=== PATIENT | male | born 1935 | race Caucasian/White ===

== ENCOUNTER 2021-09-21 12:19 | Inpatient (IN) | payer OTHER ==
[~2021-09-21] VITALS: Ht 172.7 cm; Wt 74.8 kg
[~2021-09-21 12:19] MED LIST: AMLO10 PO; ASPI325; ASPI325EC PO; ASPI81CH PO; ATOR40TA PO; CLOP75 PO; HYDACE5 PO; LISHYD2012 PO; LISI5 PO; META800 PO; METO50ER PO; NAPR500 PO; ROSU10TA PO; RXCLIN PO; TAMS.4ER PO; TRIHYD253B PO; UBID100 PO; UNK BP MED; UNK CHOLESTEROL MED
[2021-09-21 13:12] LABS: BASOPHILS ABSOLUTE AUTO 0.04 K/mm3 (0.00-0.23); BASOPHILS PERCENT AUTO 0 % (0-2); EOSINOPHILS ABSOLUTE AUTO 0.05 K/mm3 (0.00-0.68); EOSINOPHILS PERCENT AUTO 0 % (0-6); Hematocrit 36.9 % (37.0-53.0); Hemoglobin 12.3 g/dL (13.5-17.5); IMMATURE GRAN ABSOLUTE AUTO 0.05 K/mm3 (0.00-0.10); IMMATURE GRAN PERCENT AUTO 0 % (0-1); LYMPHOCYTES ABSOLUTE AUTO 0.62 K/mm3 (0.84-5.20); LYMPHOCYTES PERCENT AUTO 5 % (21-46); MONOCYTES ABSOLUTE AUTO 0.43 K/mm3 (0.16-1.47); MONOCYTES PERCENT AUTO 4 % (4-13); Mean Corpuscular HGB 30.8 pg (26.0-34.0); Mean Corpuscular HGB Conc 33.3 g/dL (31.5-36.5); Mean Corpuscular Volume 93 fL (80-100); Mean Platelet Volume 11.2 fL (9.1-12.4); NEUTROPHILS ABSOLUTE AUTO 10.23 K/mm3 (1.96-9.15); NEUTROPHILS PERCENT AUTO 90 % (41-73); Platelet Count 144 K/mm3 (150-400); RDW Coefficient Variation 14.6 % (11.7-14.2); RDW Standard Deviation 50.2 fL (35.1-46.3); Red Blood Cell Count 3.99 M/mm3 (4.30-5.90); White Blood Cell Count 11.42 K/mm3 (4.00-11.30)
[2021-09-21 13:25] LABS: International Normalized Ratio 1.13; Prothrombin Time Results 11.8 Sec (9.7-11.5)
[2021-09-21 13:27] LABS: Albumin, Blood 3.2 g/dL (3.4-5.0); Albumin/Globulin Ratio 0.8 (0.8-1.8); Bilirubin, Total 1.2 mg/dL (0.1-1.0); Bun/Creatinine Ratio 17.4 (12.0-20.0); Calcium, Blood 9.3 mg/dL (8.5-10.1); Creatinine, Blood 1.67 mg/dL (0.60-1.20); Potassium, Blood 4.3 mmol/L (3.5-5.5); Total Protein, Blood 7.2 g/dL (6.4-8.2)
--- NOTE | 2021-09-21 18:53 | NUR ---
PATIENT ARRIVED TO THE FLOOR FROM ED. TRANSFERED TO BED FROM [facility] WITH SLIDE SHEET. TOLERATED WELL. O2 @ 2L PER NC AT THIS TIME, THIS IS NOT HIS BASELINE, HE IS NORMALLY ON ROOM AIR. IV TO LEFT HAND 20G, NO SIGNS OR SYMPTOMS ACUTE DISTRESS NOTED. CALL LIGHT PLACED IN REACH, WATER IN REACH, GAVE SANDWICH AT THIS TIME. WILL MONITOR.
--- NOTE | 2021-09-21 19:15 | NUR ---
RECEIVED REPORT AND ASSUMED CARE OF PT. HE STATES THAT HIS PAIN IS 5/10 CURRENTLY AND IS REQUESTING MEDICATION. WILL MEDICATE PER NOV.
--- NOTE | 2021-09-21 21:49 | NUR ---
ICT HELP DESK TECHNICIAN CALLED TO REPORT AN EPISODE OF BRADYCARDIA INTO THE 40s THAT LASTED FOR APPROX 6 BEATS AND RESOLVED WITHOUT RECURRENCE. PT RESTING QUIETLY WITH EYES CLOSED AND EVEN, UNLABORED RESPIRATIONS. PER THE H&P, HE HAS A HISTORY OF A-FIB WITH ARRYTHMIA AND PAUSES, STATES TO FOLLOW-UP WITH [facility] IN THE MORNING.
--- NOTE | 2021-09-22 04:46 | NUR ---
SHIFT SUMMARY: DOMENICA IS A&OX4. VSS, NO ACUTE EVENTS OVERNIGHT. HE DID HAVE AN ASYMPTOMATIC EPISODE OF BRADYCARDIA. HE WAS MADE NPO AT 0300 D/T THE POSSIBILITY OF PACEMAKER PLACEMENT PER ER NOTE. HE IS USING THE URINAL WITHOUT DIFFICULTIES, ABLE TO TURN AND REPOSITION HIMSELF IN BED. HE REPORTS ADEQUATE PAIN CONTROL WITH THE ULTRAM. IV TO L HAND PATENT. HE IS LYING IN BED WITH THE CALL LIGHT IN REACH. WILL REPORT TO DAY SHIFT RN.
[2021-09-22 05:22] LABS: Hematocrit 34.5 % (37.0-53.0); Hemoglobin 11.6 g/dL (13.5-17.5); Mean Corpuscular HGB 31.7 pg (26.0-34.0); Mean Corpuscular HGB Conc 33.6 g/dL (31.5-36.5); Mean Corpuscular Volume 94 fL (80-100); Mean Platelet Volume 11.6 fL (9.1-12.4); Platelet Count 110 K/mm3 (150-400); RDW Coefficient Variation 14.7 % (11.7-14.2); RDW Standard Deviation 51.3 fL (35.1-46.3); Red Blood Cell Count 3.66 M/mm3 (4.30-5.90); White Blood Cell Count 8.09 K/mm3 (4.00-11.30)
[2021-09-22 05:51] LABS: Bun/Creatinine Ratio 17.3 (12.0-20.0); Calcium, Blood 8.7 mg/dL (8.5-10.1); Creatinine, Blood 1.73 mg/dL (0.60-1.20); Potassium, Blood 4.6 mmol/L (3.5-5.5)
--- NOTE | 2021-09-22 18:42 | NUR ---
PATIENT CURRENTLY LYING IN BED. PATIENT NEEDED HELP EATING HIS MEAL TONIGHT DUE TO BRACE IN PLACE. 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 DR GREGORY SAW PATIENT AND MADE HIM TTWB TO RIGHT LOWER EXTREMITY. PATIENT NOT TO BED OR TWIST, THE BRACE MUST BE ON AT ALL TIMES, NO LIFTING MORE THAN 5 LBS. PATIENT IS UNCOMFORTABLE IN THE BRACE. NO SIGNS OR SYMPTOMS ACUTE DISTRESS NOTED AT THIS TIME. MEDCIATED FOR PAIN TODAY X 1 SEE EMAR. WILL MONITOR.
--- NOTE | 2021-09-23 04:04 | NUR ---
PT CONTINUES TO EXPERIENCE A DECREASE IN HIS BP, DR MEYERS MADE AWARE AND GAVE ORDER FOR A 500CC BOLUS. ORDER NOTED AND PT MADE AWARE OF HIS CONDITION AND RESPONSE.
--- NOTE | 2021-09-23 05:46 | NUR ---
PT IS IN BED AT THIS TIME WHERE SHE REMAINS THROUGHOUT HE NIGHT AND IS RESTING COMFORTABLY IN STABLE CONDITION. MEDICATED FOR UPPER BACK PAIN WITH POSITIVE EFFECT, NO OTHER COMPLAINTS. PT REMINDED TO CALL FOR HLEP WHEN ASSISTANCE IS NEEDED SHE IS MONITORED.
[2021-09-23 06:31] LABS: BASOPHILS ABSOLUTE AUTO 0.05 K/mm3 (0.00-0.23); BASOPHILS PERCENT AUTO 1 % (0-2); EOSINOPHILS ABSOLUTE AUTO 0.56 K/mm3 (0.00-0.68); EOSINOPHILS PERCENT AUTO 8 % (0-6); Hematocrit 32.3 % (37.0-53.0); Hemoglobin 10.9 g/dL (13.5-17.5); IMMATURE GRAN ABSOLUTE AUTO 0.02 K/mm3 (0.00-0.10); IMMATURE GRAN PERCENT AUTO 0 % (0-1); LYMPHOCYTES ABSOLUTE AUTO 1.11 K/mm3 (0.84-5.20); LYMPHOCYTES PERCENT AUTO 16 % (21-46); MONOCYTES ABSOLUTE AUTO 0.62 K/mm3 (0.16-1.47); MONOCYTES PERCENT AUTO 9 % (4-13); Mean Corpuscular HGB Conc 33.7 g/dL (31.5-36.5); Mean Corpuscular Volume 95 fL (80-100); Mean Platelet Volume 11.6 fL (9.1-12.4); NEUTROPHILS ABSOLUTE AUTO 4.76 K/mm3 (1.96-9.15); NEUTROPHILS PERCENT AUTO 67 % (41-73); Platelet Count 93 K/mm3 (150-400); RDW Coefficient Variation 14.8 % (11.7-14.2); RDW Standard Deviation 51.9 fL (35.1-46.3); Red Blood Cell Count 3.41 M/mm3 (4.30-5.90); White Blood Cell Count 7.12 K/mm3 (4.00-11.30)
[2021-09-23 06:52] LABS: Bun/Creatinine Ratio 20.2 (12.0-20.0); Calcium, Blood 8.4 mg/dL (8.5-10.1); Creatinine, Blood 2.43 mg/dL (0.60-1.20); Potassium, Blood 4.8 mmol/L (3.5-5.5)
--- NOTE | 2021-09-23 18:44 | NUR ---
SHIFT SUMMARY PT A/O X4; PLEASANT AND COOPERATIVE WITH CARE. POD #1 FOR PACEMAKER PLACEMENT. PACEMAKER TO THE L CHEST WALL WITH A GAUZE AND TEGADERM DRESSSING CDI. L ARM IN A SLING IN ORDER TO KEEP THE ARM IMMOBILIZED. CERVICAL BRACE/COLLAR IN PLACE. PT IS ABLE TO GET UP WITH TOE TOUCH WEIGHT BEARING DUE TO HIS PELVIC FX. SPINAL PRECAUTIONS TO BE OBSERVED. PT TO WORK WTH P.T. AND O.T. TOMORROW. MEDICATED FOR PAIN X1 THIS SHIFT. VSS. WILL REPORT TO LISA GRISSOM.
--- NOTE | 2021-09-24 05:35 | NUR ---
PT IS IN BED AND IS RESTING IN STABLE CONDITION. AAO, ASSISTED WITH CARE AND ADLS, ASSISTED WITH BATHROOM AND TOILETING NEEDS, MEDICATED INDICATED. HIS NECK IS KEPT IN THE BRACE FOR SUPPORT, BEING MEDICATED WITH IV ANTIBIOTIC POST PACEMAKER PLACEMENT, NO ADVERSE EFFECT. CALL LEAL GIVEN TO HIM AND ENCOURAGED TO CALL FOR HELP WHEN ASSISTANCE IS NEEDED HE IS MONITORED.
--- NOTE | 2021-09-24 17:34 | NUR ---
SUMMARY OOB TO CHAIR WITH PIVOT TRANSFER AND 2 PERSON ASSIST. PT WITH LEFT ARM IN SLING S/P PACEMAKER, PACEMAKER DRESSING CLEAN AND DRY. PT REPORTS SOME PAIN TO PELVIS AND PACEMAKER INSERTION SITE CONTROLLED WITH PO MEDS. PTS DAUGHTER IN TO VISIT AND ASKING IF [facility] WILL COVER PATIENTS MEDICAL EQUIPMENT EXPENSES. PTS DAUGHTER IS UNSURE AT THIS TIME IF SHE WILL BE ABLE TO MEET PATIENTS CARE NEEDS IF HE DISCHARGES TO HOME. SPOKE WITH AMRITA CHAMBERS RN REGAARDING DISCHARGE PLAN.
--- NOTE | 2021-09-24 18:34 | NUR ---
LEFT CHEST PACEMAKER DRESSING STURTED WITH BLOODY DRAINAGE AFTER PATIENT SITTING UP FOR DINNER. MICHAEL FLANAGAN RN CHARGE NURSE/PCU REMOVED DRESSING TO OBSERV PACEMAKER SITE. PER MICHAEL SITE SOFT, SMALL AMOUNT OF OOZING BLOOD NOTED FROM 0.5 CM BRUISED AREA ON ANTERIOR EDGE OF INSERTION SITE. NEW NON ADHERENT DRESSING APPLIED AND ICE BAG PLACED TO INSERTION SITE. NECK BRACE ADJUSTED WITH 2 RN ASSIST AND A THIRD PERSON STABILIZING PATIENTS NECK
--- NOTE | 2021-09-25 04:55 | NUR ---
PT IS IN BED AT THIS TIME WHERE HE REMAINS THROUGHOUT THE NIGHT AND IS RESTING COMFORTABLY IN STABLE CONDITION. HE IS ALERT AND ORIENTED, MEDICATED INDICATED. HE IS ASSISTED WITH CARE AND ADLS, ASSISTD WITH BATHROOM AND TOILETING NEEDS, ASSISTED WITH POSITION CHANGE TO PROMOTE COMFORT. HE WAS GIVEN PRN PAIN MED AND VERBALIZED PAIN RELIEF, NO OTHER COMPLAINTS. HIS NECK BRACE IS IN PLACE, CALL LIGHT GIVEN TO HIM AND REMINDED TO CALL FOR HELP WHEN ASSISTANCE IS NEEDED HE IS MONITORED.
[2021-09-25 05:02] LABS: BASOPHILS ABSOLUTE AUTO 0.04 K/mm3 (0.00-0.23); BASOPHILS PERCENT AUTO 1 % (0-2); EOSINOPHILS ABSOLUTE AUTO 0.52 K/mm3 (0.00-0.68); EOSINOPHILS PERCENT AUTO 9 % (0-6); Hematocrit 33.5 % (37.0-53.0); Hemoglobin 11.2 g/dL (13.5-17.5); IMMATURE GRAN ABSOLUTE AUTO 0.01 K/mm3 (0.00-0.10); IMMATURE GRAN PERCENT AUTO 0 % (0-1); LYMPHOCYTES ABSOLUTE AUTO 1.06 K/mm3 (0.84-5.20); LYMPHOCYTES PERCENT AUTO 19 % (21-46); MONOCYTES ABSOLUTE AUTO 0.59 K/mm3 (0.16-1.47); MONOCYTES PERCENT AUTO 11 % (4-13); Mean Corpuscular HGB 31.4 pg (26.0-34.0); Mean Corpuscular HGB Conc 33.4 g/dL (31.5-36.5); Mean Corpuscular Volume 94 fL (80-100); Mean Platelet Volume 11.8 fL (9.1-12.4); NEUTROPHILS PERCENT AUTO 60 % (41-73); Platelet Count 104 K/mm3 (150-400); RDW Coefficient Variation 14.4 % (11.7-14.2); RDW Standard Deviation 49.7 fL (35.1-46.3); Red Blood Cell Count 3.57 M/mm3 (4.30-5.90); White Blood Cell Count 5.62 K/mm3 (4.00-11.30)
[2021-09-25 06:16] LABS: Albumin, Blood 2.6 g/dL (3.4-5.0); Anion Gap 6 mmol/L (6-16); Blood Urea Nitrogen 47 mg/dL (8-24); Bun/Creatinine Ratio 34.1 (12.0-20.0); CO2, Blood 24 mmol/L (21-32); Calcium, Blood 8.5 mg/dL (8.5-10.1); Chloride, Blood 108 mmol/L (98-108); Creatinine, Blood 1.38 mg/dL (0.60-1.20); Glomerular Filtration Rate 49 (60-); Glucose, Blood 94 mg/dL (70-99); Phosphorus, Blood 2.5 mg/dL (2.5-4.9); Potassium, Blood 4.9 mmol/L (3.5-5.5); Sodium, Blood 138 mmol/L (136-145)
--- NOTE | 2021-09-25 15:44 | NUR ---
TO RADIOLOGY PER KATI
--- NOTE | 2021-09-25 17:54 | NUR ---
PT USING IS HOURLY X 10 REPS WITH REMINDERS, DENIES SOB. LUNGS DECREASED BASES AND COARSE. PT WITH EPISODE OF COUGHING LASTING FOR A FEW MINUTES AND SWALLOWED SECRETIONS. NICOL Olivarez BRACE HAS REQUIRED REPOSITIONING PT REPORTS UNCOMFORTABLE AND THAT HE HAD LOOSENED IT. PT EDUCATION GIVEN REGARDING BRACE AND TO CALL FOR RN AND IS NOT TO LOOSEN OR SELF REPOSITION. 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 PT UP TO CHAIR WITH LUCY WALKER AND 2 PERSON ASSIT. PT REPORTS LESS PAINFUL TODAY THAN HE WAS YESTERDAY. POSSIBLE DC TO SNF IN AM, PT AND IN AGREEMENT WITH DISCHARGE PLAN
--- NOTE | 2021-09-26 05:40 | NUR ---
ALERT AND ORIENTED. DENIES PAIN OR DISCOMFORT. [place] BRACE IN PLACE, READJUSTED THROUGH NIGHT. PATIENT REFUSING TO WEAR SLING TO LEFT ARM WHILE IN BED, ELEVATED ON PILLOW, REMAINS NWB. DRESSING IN PLACE TO LEFT CHEST, EDEMA AND BRUISING AROUND DRESSING, NO CHANGE IN SITE FROM START OF SHIFT. SLEPT WELL THROUGH NIGHT, SAFETY MAINTAINED, CALL LEAL IN REACH.
[2021-09-26 05:55] LABS: Hematocrit 31.4 % (37.0-53.0); Hemoglobin 10.6 g/dL (13.5-17.5)
[2021-09-26 06:12] LABS: Bun/Creatinine Ratio 30.2 (12.0-20.0); Calcium, Blood 8.7 mg/dL (8.5-10.1); Creatinine, Blood 1.29 mg/dL (0.60-1.20); Potassium, Blood 4.6 mmol/L (3.5-5.5)
[2021-09-26 09:45] LABS: BASOPHILS ABSOLUTE AUTO 0.07 K/mm3 (0.00-0.23); BASOPHILS PERCENT AUTO 1 % (0-2); EOSINOPHILS ABSOLUTE AUTO 0.54 K/mm3 (0.00-0.68); EOSINOPHILS PERCENT AUTO 9 % (0-6); Hematocrit 31.5 % (37.0-53.0); Hemoglobin 10.5 g/dL (13.5-17.5); IMMATURE GRAN ABSOLUTE AUTO 0.01 K/mm3 (0.00-0.10); IMMATURE GRAN PERCENT AUTO 0 % (0-1); LYMPHOCYTES ABSOLUTE AUTO 1.22 K/mm3 (0.84-5.20); LYMPHOCYTES PERCENT AUTO 21 % (21-46); MONOCYTES ABSOLUTE AUTO 0.66 K/mm3 (0.16-1.47); MONOCYTES PERCENT AUTO 12 % (4-13); Mean Corpuscular HGB 31.5 pg (26.0-34.0); Mean Corpuscular HGB Conc 33.3 g/dL (31.5-36.5); Mean Corpuscular Volume 95 fL (80-100); Mean Platelet Volume 11.7 fL (9.1-12.4); NEUTROPHILS ABSOLUTE AUTO 3.22 K/mm3 (1.96-9.15); NEUTROPHILS PERCENT AUTO 56 % (41-73); Platelet Count 131 K/mm3 (150-400); RDW Coefficient Variation 14.6 % (11.7-14.2); RDW Standard Deviation 50.4 fL (35.1-46.3); Red Blood Cell Count 3.33 M/mm3 (4.30-5.90); White Blood Cell Count 5.72 K/mm3 (4.00-11.30)
[2021-09-26] MEDS ORDERED: DOCU100 PO (10:58)
[2021-09-26] MEDS ORDERED: ENOX40I SC (10:58)
[2021-09-26] MEDS ORDERED: MASOPHEN325 M3 PO (10:58)
[2021-09-26] MEDS ORDERED: SENN187 PO (10:59)
[2021-09-26] MEDS ORDERED: HYDROCODONE-AC1 EA10 PO (10:59)
[2021-09-26 11:15] LABS: Influenza A, PCR NEGATIVE (NEGATIVE); Influenza B, PCR NEGATIVE (NEGATIVE); Resp Syncytial Virus, PCR NEGATIVE (NEGATIVE); SARS-Cov-2 (COVID-19) PCR, MMC NEGATIVE (NEGATIVE)
--- NOTE | 2021-09-26 12:33 | NUR ---
DISCHARGE: REPORT CALLED TO PRAVEENA DUNHAM AT [facility]. NOTIFED RAHEL PENA DAUGHTER OF DISCHARGE TO [facility] FOR TODAY. TRANSPORT IS SET UP TO ARRIVE AT 1300. IV REMOVED, TELE REMOVED. CERVICAL THORASIC ORTHOSIS ADJUSTED A THIS TIME. AWAITING TRANSPORT TO ARRIVE.
== END 2021-09-26 13:03 | DRG 981 ==
LOC: ER 12:19 → SURS 16:32
PROVIDERS: Internal Medicine; Physician Assistant; ADMIT Internal Medicine
PROC: 0JH604Z Insertion of Pacemaker, Single Chamber into Chest Subcutaneous Tissue and Fascia, Open Approach (ICD-10-PCS; principal; 2021-09-23)
PROC: 02HK3JZ Insertion of Pacemaker Lead into Right Ventricle, Percutaneous Approach (ICD-10-PCS; 2021-09-23)
DX: S32.591A Other specified fracture of right pubis, initial encounter for closed fracture (principal); S32.401A Unspecified fracture of right acetabulum, initial encounter for closed fracture; S22.018A Other fracture of first thoracic vertebra, initial encounter for closed fracture; I48.20 Chronic atrial fibrillation, unspecified; N17.9 Acute kidney failure, unspecified; I49.5 Sick sinus syndrome; S32.511A Fracture of superior rim of right pubis, initial encounter for closed fracture; Z20.822 Contact with and (suspected) exposure to COVID-19; I25.10 Atherosclerotic heart disease of native coronary artery without angina pectoris; E78.5 Hyperlipidemia, unspecified; I12.9 Hypertensive chronic kidney disease with stage 1 through stage 4 chronic kidney disease, or unspecified chronic kidney disease; D63.1 Anemia in chronic kidney disease; N40.0 Benign prostatic hyperplasia without lower urinary tract symptoms; I73.9 Peripheral vascular disease, unspecified; Z66 Do not resuscitate; N18.30 Chronic kidney disease, stage 3 unspecified; I71.4 Abdominal aortic aneurysm, without rupture; Z95.1 Presence of aortocoronary bypass graft; Z79.02 Long term (current) use of antithrombotics/antiplatelets; Z79.82 Long term (current) use of aspirin; Z79.899 Other long term (current) drug therapy; Y92.094 Garage of other non-institutional residence as the place of occurrence of the external cause; W11.XXXA Fall on and from ladder, initial encounter
CPT/HCPCS: 0241U; 33207; 36415; 70450; 71046; 71260; 72125; 74177; 80048; 80053; 80069; 85014; 85018; 85025; 85027; 85610; 93005; 93010; 94760; 96374; 96376; 97110; 97162; 97530; 99152; 99153; 99285-25; A9270; C1769; C1786; C1898; G0378; J0690; J1580; J1644; J1650; J1940; J2250; J3010; J7030; J7040; J7050; L0160; Q9967

== ENCOUNTER → 2023-01-14 | Outpatient (CLI) | payer OTHER ==
[~2023-01-14] MED LIST changes: +DOCU100 PO; +ENOX40I SC; +HYDROCODONE-AC1 EA10 PO; +MASOPHEN325 M3 PO; +SENN187 PO
[2023-01-14 15:59] LABS: Protein, Urine Quantitative 21.5 mg/dL (0.0-11.9)
[2023-01-14 16:02] LABS: Microalbumin, Urine Quant. 43.3 mg/L (0.000-20.000)
== END | disposition home or self-care (01) ==
LOC: LAB SHORT 08:00 → LAB 08:00
PROVIDERS: Internal Medicine Nephrology
DX: N18.30 Chronic kidney disease, stage 3 unspecified (principal); D63.1 Anemia in chronic kidney disease; N25.81 Secondary hyperparathyroidism of renal origin; E55.9 Vitamin D deficiency, unspecified; E78.00 Pure hypercholesterolemia, unspecified; R76.9 Abnormal immunological finding in serum, unspecified; R94.5 Abnormal results of liver function studies; R94.6 Abnormal results of thyroid function studies
CPT/HCPCS: 81050; 82043; 82570; 84156

== ENCOUNTER 2023-02-02 13:09 | Day surgery (SDC) | payer OTHER ==
[~2023-02-02] VITALS: Ht 175.3 cm; Wt 73.1 kg
[2023-02-02] MEDS ORDERED: FURO40 PO (13:36)
[2023-02-02] MEDS ORDERED: AMLO10 PO (13:37)
--- NOTE | 2023-02-02 13:44 | NUR ---
02/02/23 1344 Jenni Murphy DAUGHTER KALYAN AT BEDSIDE. CALL LIGHT WITHIN REACH. BED IN LOWEST POISITON.
[2023-02-02 15:51] VITALS: BP 155/61
--- NOTE | 2023-02-02 16:09 | NUR ---
02/02/23 [id number] CHILDS AT BEDSIDE.
== END 2023-02-02 16:22 | disposition home or self-care (01) ==
LOC: ORSCSDS 13:09
PROVIDERS: Ophthalmology
PROC: 08SR0ZZ Reposition Left Lower Eyelid, Open Approach (ICD-10-PCS; principal; 2023-02-02 14:45)
PROC: 08SQ0ZZ Reposition Right Lower Eyelid, Open Approach (ICD-10-PCS; principal; 2023-02-02 14:45)
DX: H02.112 Cicatricial ectropion of right lower eyelid (principal); H02.115 Cicatricial ectropion of left lower eyelid; H16.213 Exposure keratoconjunctivitis, bilateral; H04.523 Eversion of bilateral lacrimal punctum; I10 Essential (primary) hypertension; I25.10 Atherosclerotic heart disease of native coronary artery without angina pectoris; E78.00 Pure hypercholesterolemia, unspecified; Z79.02 Long term (current) use of antithrombotics/antiplatelets; Z79.899 Other long term (current) drug therapy
CPT/HCPCS: A9270; J2704; J2795; J7040